=== PATIENT | male | born 1925 | race Caucasian/White ===

== ENCOUNTER → 2016-03-22 | Day surgery (SDC) | payer MEDICARE, MEDICAID ==
--- NOTE | 2016-03-17 16:08 | Pre-Procedure Note/Attestation ---
Pre-Procedure Note/Attestation Complete Prior to Procedure Planned Procedure: left Procedure Narrative: 1. CATARACT EXTRACTION WITH PHACO AND PC IOL IMPLANTATION, LEFT EYE. 2.MALYUGIN RING INSERTION, LEFT EYE FOR FLOPPY IRIS SYNDROME. 3.COMPLEX CATARACT , LEFT EYE Indications for Procedure Pre-Operative Diagnosis: 1. CATARACT ,LEFT EYE. 2. FLOPPY IRIS SYNDROME, LEFT EYE 3. COMPLEX CATARACT , LEFT EYE. Attestation I attest that I discussed the nature of the procedure; its benefits; risks and complications; and alternatives (and the risks and benefits of such alternatives ), prior to the procedure, with the patient (or the patient's legal sales representative uniforms). I attest that, if there was a reasonable possibility of needing a blood transfusion, the patient (or the patient's legal sales representative uniforms) was given the [facility] standardized written summary, pursuant to the Joe Irene Blood Safety Act ([place] Health and Safety Code # 1645, as amended). I attest that I re-evaluated the patient just prior to the surgery and that there has been no change in the patient's H&P, except as documented below: VENECIA PUGH Mar 17, 2016 16:08
[~2016-03-22] VITALS: Ht 172.7 cm; Wt 83.9 kg
[2016-03-22] VITALS (7 sets, daily range): BP systolic 125–143; BP diastolic 66–74
[~2016-03-22] MED LIST: ATENOLOL25 MG ORAL; AVODART0.5 MG ORAL; BSS 15ml BTL ONE; BSS 500ml btl ONE; CRESTOR10 M2 ORAL; DOXAZOSIN MESYLA4 MG ORAL; Dexamethasone 4mg/ml vial ONE; DiphenhydrAMINE 50mg/ml Inj IVP PRN; DiphenhydrAMINE 50mg/ml Inj ONE; EPINEPHrine 1mg/1ml Amp ONE; LEVOTHYROXINE150 MCG ORAL; LOVAZA1 GM ORAL; LR 1000ml 1,000 ML IVLG SCH; LR 1000ml ONE; Labetalol 5mg/ml 20ml vial IV PRN; Lidocaine 1% MPF 10mg/ml 5ml ONE; Povidone-Iodine 5% opth solution ONE; RANEXA500 MG ORAL; Sodium Hyaluronate 10 mg/ml 0.85ml ONE; TAMSULOSIN HCL0.4 MG ORAL; VITAMIN B-121000 MC2 SL; VITAMIN D400 INTLU ORAL; acetaZOLAMIDE 125mg tab ORAL ONE
[2016-03-22] MEDS: Diclofenac Sod 0.1% Op Soln LEFT EYE SCH ×3 (08:05→08:40)
[2016-03-22] MEDS: Phenylephrine 10% Opth Soln 5ml LEFT EYE SCH ×3 (08:05→08:40)
[2016-03-22] MEDS: Tropicamide 1% Opth Soln LEFT EYE SCH ×3 (08:05→08:40)
[2016-03-22] MEDS: Gatifloxacin Opth Solution 0.5% LEFT EYE SCH ×2 (08:06→08:40)
[2016-03-22] MEDS: Akten 3.5% 1ml Btl LEFT EYE SCH ×2 (08:06→08:40)
--- NOTE | 2016-03-22 09:21 | Anethesia Preoperative Eval ---
Anesthesia Pre-op PMH/ROS General Date of Evaluation: Mar 22, 2016 Anesthesiologist: Juan Carlos ASA Score: ASA 3 Mallampati Score Class I : Soft palate, uvula, fauces, pillars visible Class II: Soft palate, uvula, fauces visible Class III: Soft palate, base of uvula visible Class IV: Only hard plate visible Mallampati Classification: Class II Surgeon: Marie Diagnosis: Left cataract Surgical Procedure: Left cataract extraction with IOL Anesthesia History: none Family History: no anesthesia problems Allergies: Coded Allergies: No Known Allergies (Unverified , 03/17/16) Medications: see eMAR Past Medical History Cardiovascular: Reports: CAD - s/p CABG, HTN, other - HLD, Denies: [place], arrhythmia, valve dz Pulmonary: Denies: COPD, BENITO, asthma, other Gastrointestinal/Genitourinary: Reports: GERD, other - BPH, Denies: CRI, ESRD Neurologic/Psychiatric: Denies: CVA, TIA, dementia, depression/anxiety, other Endocrine: Reports: hypothyroidism, Denies: DM, other, steroids HEENT: Reports: cataract (L), cataract (R), Denies: QUINAULT (L), QUINAULT (R), glaucoma, other Hematology/Immune: Denies: DVT, anemia, bleeding disorder, other Musculoskeletal/Integumentary: Denies: DDD, DJD, OA, RA, edema, other PSxH Narrative: Right eye sx, T&A, cABG, lap appy, left femur ORIF Anesthesia Pre-op Phys. Exam Physician Exam Last Vital Signs Date Time Temp Pulse Resp B/P Pulse Ox O2 Delivery O2 Flow Rate FiO2 03/22/16 08:14 97.0 58 18 130/74 99 Room Air Constitutional: NAD Cardiovascular: RRR Respiratory: CTA Airway Exam Mallampati Score: Class II Dentures: lower, upper Anesthesia Pre-op A/P Labs see chart Studies Pre-op Studies: EKG - sr Risk Assessment & Plan Assessment: ASA III Plan: MAC Status Change Before Surgery: No Pre-Antibiotics Drug: N/A ROSS ANGEL M.D. Mar 22, 2016 09:21
--- NOTE | 2016-03-22 09:22 | Immediate Post-Op Evaluation ---
Immediate Post-Op Evalulation Immediate Post-Op Evalulation Procedure: Left cataract extraction with IOL Date of Evaluation: Mar 22, 2016 Time of Evaluation: 10:37 IV Fluids: 200 Blood Products: 0 Estimated Blood Loss: 0 Urinary Output: 0 Blood Pressure Systolic: 132 Blood Pressure Diastolic: 66 Pulse Rate: 61 Respiratory Rate: 17 O2 Sat by Pulse Oximetry: 100 Temperature (Fahrenheit): 98.2 Pain Score (1-10): 0 Nausea: No Vomiting: No Complications 0 Patient Status: awake, reacts, patent, none Hydration Status: adequate Drug: N/A ROSS ANGEL M.D. Mar 22, 2016 09:22
--- NOTE | 2016-03-22 09:22 | 48 Hour Post Anesthesia Eval ---
Post Anesthesia Evaluation Procedure: Left cataract extraction with IOL Date of Evaluation: Mar 22, 2016 Blood Pressure Systolic: 139 0: 69 Pulse Rate: 56 Respiratory Rate: 18 O2 Sat by Pulse Oximetry: 98 Airway: patent Nausea: No Vomiting: No Pain Intensity: 0 Hydration Status: adequate Cardiopulmonary Status: at baseline Mental Status/LOC: patient returned to baseline Post-Anesthesia Complications: 0 Follow-up care needed: ready to discharge ROSS ANGEL M.D. Mar 22, 2016 09:22
--- NOTE | 2016-03-22 10:38 | Brief Operative Note ---
Immediate Post Operative Note Operative Note Chief Complaint: Blurry vision, left eye, difficulty reading and driving Pre-op Diagnosis: 1. CATARACT ,LEFT EYE. 2. FLOPPY IRIS SYNDROME, LEFT EYE 3. COMPLEX CATARACT , LEFT EYE. Procedure: 1- Cataract extraction with phaco and PC IOL implantation, left eye 2-Malyugin ring insertion for management of the Floppy Iris Syndrome, left eye 3- Complex cataract , left eye Post-op Diagnosis: same as pre-op Surgeon: Venecia Salazar M.D. Mechanical Shop Laborer: None Additional Surgeons: None Anesthesiologist: Dr. Greene Anesthesia: MAC Specimen: none Complications: none Condition: stable Estimated Blood Loss: none Drains: none Implant(s) used?: Yes - Mopnofocal PC IOL was implanted in the left eye without comlication VENECIA SALAZAR Mar 22, 2016 10:38
--- NOTE | 2016-03-22 20:38 | Discharge Summary ---
DATE OF ADMISSION: 03/22/2016 DATE OF DISCHARGE: 03/22/2016 REASON FOR ADMISSION: 1. Cataract in the left eye. 2. Floppy iris syndrome in the left eye. 3. Complex cataract in the left eye. SURGERY PERFORMED: 1. Cataract extraction with phacoemulsification of posterior chamber intraocular lens implantation in the left eye. 2. Malyugian ring was inserted into the anterior chamber for treatment of floppy iris syndrome. CONDITION IN THE HOSPITAL: The patient tolerated the surgery without complications. DISCHARGE CONDITION: The patient was stable at discharge. DISCHARGE MEDICATIONS: 1. Vigamox eye drop one drop q.i.d., left eye. 2. Prednisolone one drop q.i.d., left eye. 3. Acular one drop q.i.d., left eye. POSTOPERATIVE ORDERS: The patient has to rest at home. No bending. No lifting. No watching TV tonight. Postoperative Followup: The patient will be followed in my office tomorrow at 6:30 in the morning. Suraj Salazar M.D. DR: FLAVIA JOB#: [id number] CC:
--- NOTE | 2016-03-22 21:08 | Operative Note - Dictated ---
DATE OF OPERATION: 03/22/2016 FACILITY: [facility]. SURGEON: Suraj Salazar M.D. APPLICATION TRAINER: None. ANESTHESIOLOGIST: Dr. Greene. ANESTHESIA: Monitored anesthesia care (MAC). PREOPERATIVE DIAGNOSES: 1. Cataract, left eye. 2. Floppy iris syndrome. 3. Complex cataract. 4. Macular degeneration. POSTOPERATIVE DIAGNOSES: 1. Cataract, left eye. 2. Floppy iris syndrome. 3. Complex cataract. 4. Macular degeneration. SURGERY PERFORMED: 1. Cataract extraction with phacoemulsification of posterior chamber intraocular lens implantation in the left eye. 2. Malyugin ring was injected into the anterior chamber to treat floppy iris syndrome. 3. Vision Blue was inserted to stain the anterior capsule. INDICATION: The patient is an 89-year-old gentleman with history of anemia, hypothyroidism, hypertension, and degenerative joint disease. He is not allergic to any medications. 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 Rowan 10 years ago. 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 So, the patient is monovision and the left eye is the only working eye for the patient. Now, he is complaining of blurry vision in the left eye. On examination of the left eye, the cornea is clear. Anterior chamber is clean and quiet. Pupillary reflexes normal. There is no RAPD . There is 4+ nuclear sclerosis and 3+ cortical cataract in the left eye. Funduscopy shows macular degeneration in the eye, but optic disc and periphery retina are within normal limits. To improve his vision in the left eye, the cataract has to be removed and posterior chamber intraocular lens has to be implanted. INFORMED CONSENT: The nature of the surgery, risks, benefits, alternatives, and potential complications were all explained in detail to the patient in the language Farsi. Therefore, the potential complications including, but not limited to bleeding, infection, posterior capsular rupture, lens subluxation, flat anterior chamber, iris prolapse, uveitis, corneal edema, macular edema, endophthalmitis, retinal detachment, loss of vision, and even loss of the eye were all explained in detail to the patient. The patient was understanding and accepted all the complications. The alternatives including accommodating lenses, multifocal lenses, toric lens, and conventional cataract surgery with limbal relaxing incision for treatment of astigmatism were all explained in detail to the patient. The patient voiced understanding. Therefore, the patient elected to have only conventional cataract surgery in the left side. He has signed a consent form, which is in the chart. DESCRIPTION OF SURGERY AND FINDINGS: Following that, the patient was taken to the operation room in stable condition. Lidocaine gel Akten 3.5% were applied to the conjunctiva of the left eye. Anesthesia was IV sedation was given by the anesthesiologist, Dr. Greene. After adequate anesthesia and sedation had been achieved, the left eye was prepped and draped in a sterile fashion for intraocular surgery. Following that, a speculum was placed in the left eye. Following that, using a Super Sharp knife, a clear corneal side port was created. Following that, 1% lidocaine without preservative (MPF) was injected into the anterior chamber. Viscoelastic agent, Healon was injected into the anterior chamber. Following that, using a 2.8 mm keratome, a clear corneal temporal keratotomy was performed. Viscoelastic agent was injected into the anterior chamber again. Following that, a Malyugin ring was injected into the anterior chamber. Following that, the toils of the Malyugin was engaged with the with the sphincter of the pupil. A mary lou-shaped space was created to do safe capsulotomy and safe phacoemulsification in the patient. Following that, the vision blue was injected under the viscoelastic agent. Following that, viscoelastic agent, Healon was injected into the anterior chamber again. Under the viscoelastic agent, an anterior capsulotomy was performed in the fashion of capsulorrhexis beautifully. Following that, the viscoelastic agent was removed from the anterior chamber and hydrodissection and hydrodelineation was performed with balanced salt solution was and the nucleus was freed. Following that, a clear viscoelastic agent was injected into the anterior chamber to protect the endothelium of the cornea again. Following that, using a phacoemulsification machine in the fashion of horizontal chop, the nucleus was removed in toto. Following that, using irrigation aspiration unit, the cortical material was removed from the capsular bag and the capsular bag was polished. Following that, the capsular bag was filled with viscoelastic agent, Healon. Following that, a 25 diopter lens, [id number] foldable PC IOL was injected into the capsular bag. Using a Sinskey hook, the lens was manipulated within the proper position. Following that, the viscoelastic agent was removed from the anterior posterior part of the lens. Following that, the anterior chamber was filled with balanced salt solutionand the wound was hydrated with balanced salt solution. Following that, the wound was checked for leakage and there was no leakage. Vigamox eye drops were applied to the conjunctiva of the left eye. The patient tolerated the surgery without complications. At the end of the surgery, the eye was patched with a clear sterile fenestrated shield. Following that, the patient was transferred to the recovery room. In the recovery room, 125 mg Diamox was given by mouth stat. Postoperative orders and directions were given to the patient. The patient will be discharged home upon stabilization. The patient will be followed in my office tomorrow morning at 6:30 in the morning. Suraj Salazar M.D. DR: FLAVIA JOB#: [id number] CC:
== END | disposition home or self-care (01) ==
LOC: SUR 07:27
DX: H25.12 Age-related nuclear cataract, left eye (principal); H25.012 Cortical age-related cataract, left eye; H21.81 Floppy iris syndrome; H35.30 Unspecified macular degeneration; H54.41 Blindness, right eye, normal vision left eye; D64.9 Anemia, unspecified; E03.9 Hypothyroidism, unspecified; I10 Essential (primary) hypertension; M19.90 Unspecified osteoarthritis, unspecified site; I25.10 Atherosclerotic heart disease of native coronary artery without angina pectoris; Z95.1 Presence of aortocoronary bypass graft; E78.5 Hyperlipidemia, unspecified; K21.9 Gastro-esophageal reflux disease without esophagitis; N40.0 Benign prostatic hyperplasia without lower urinary tract symptoms; Z79.899 Other long term (current) drug therapy
CPT/HCPCS: 66982; J0171; J1100; J1200; J7120; V2632; 94003; 94150